=== PATIENT | female | born 1945 | race Caucasian/White ===

== ENCOUNTER 2017-04-11 08:15 | Day surgery (SDC) | payer MEDICARE, OTHER ==
[2017-04-11] MEDS ORDERED: Versed 2 MG/2 ML Injection IV ONE (08:16)
[2017-04-11] MEDS ORDERED: DIPRIVAN 200 MG/20 ML IV ONE (08:16)
[2017-04-11] MEDS ORDERED: Lactated Ringers 1,000 ML IV ONE (09:37)
[2017-04-11] MEDS ORDERED: BETADINE 5% OPHTHALMIC 30 ML OP ONE (10:00)
[2017-04-11] MEDS ORDERED: LIDOCAINE HCL 1% AMPUL 5 ML IJ ONE (10:00)
[2017-04-11] MEDS ORDERED: BSS 500 ML, Fortaz/Tazicef 1 GM** 0.2 G IO ONE ×2 (10:00)
[2017-04-11] MEDS ORDERED: Lactated Ringers 1,000 ML IV SCH (10:00)
[2017-04-11] MEDS ORDERED: Ak-Dilate OPHTHALMIC*** 0.71 ML, Cyclogyl 1% OPHTH SOL 5 ML 0.71 ML, GATIFLOXACIN 0.5% ... OP ONE ×4 (10:00)
[2017-04-11] MEDS ORDERED: Epinephrine Preservative Free 1 MG/ML INTRAOP ONE (10:00)
[2017-04-11] MEDS ORDERED: TETRACAINE 0.5% STERI-UNIT SOL OP ONE ×2 (10:00)
[2017-04-11] MEDS ORDERED: Zofran 4 MG/2 ML VIAL IV PRN (11:30)
[2017-04-11] MEDS ORDERED: ACETAZOLAMIDE 250 MG TABLET PO ONE (11:30)
[2017-04-11 11:39] VITALS: O2SAT 94
[2017-04-11 11:54] VITALS: BP 104/65; PULSE 65
--- NOTE | 2017-04-11 12:24 | OP ---
DATE/TIME OF OPERATION: 04/11/2017 1034 TIME DICTATED: 1151 PREOPERATIVE DIAGNOSIS: Senile cataract of left eye. POSTOPERATIVE DIAGNOSIS: Senile cataract of left eye. SURGEON: Last Rodriguez MD ENGINEERING DIRECTOR: None. OPERATION: Cataract extraction of left eye with an intraocular lens implant. STANDARD COMPLEX __X____ ANESTHESIA: MAC. ___X___ Monitored anesthesia care in combination with topical and intra-cameral anesthesia (because of the established specific risk of reflux, arrhythmias, or an anxiety attack associated with ocular manipulation as well as difficulty of the cash specialist to manage such potentially catastrophic events while simultaneously attempting to complete the surgical procedure, it was deemed necessary for the patient's safety to have an anesthesiologist or a nurse hand grinder present during the procedure whenever possible. The anesthesiologist or the nurse hand grinder was utilized to monitor and regulate the intravenous sedation of the patient, so the patient was cooperative, relaxed, and comfortable). Topical anesthesia using Tetracaine eye drops together with intra cameral anesthesia using Lidocaine 1% MPF. The nurse was utilized to monitor the patient. ANESTHESIA PROVIDER: Kendell Bates CRNA. COMPLICATIONS: None. BLOOD LOSS: None. INDICATIONS: The patient is undergoing cataract surgery in the hopes of eliminating the visual complaints and difficulty. PROCEDURE: After arriving at the facility's outpatient surgery area, an IV was started; the patient was given 5 mg of p.o. Versed. (If an anesthesia provider was not monitoring the patient) The patient was then given topical anesthetic Tetracaine eye drops. A cotton pellet was soaked into a solution of a combination of Zymaxid 0.5%, Chivo-Synephrine 2.5% and Ocufen (other drops might have been substituted referenced in the patient's record). The pellet was inserted by the RN into the lower conjunctival cul-de-sac with a sterile forceps and left for 20 minutes. The pellet was then removed by the RN with a sterile forceps before taking the patient to the operating room. The preoperative area nurse identified the patient and marked the correct eye to be operated on. I identified the correct eye to be operated on and marked it appropriately in the outpatient surgery area. The patient was then taken into the operating room. Tetracaine eye drops were installed again in the correct eye. The eyelids and the lashes and the lid margins were scrubbed with Betadine solution. One drop of the diluted Betadine solution was placed in the conjunctival cul-de-sac for 45 seconds and then was irrigated. A drop of Tetracaine Gel was placed in the conjunctival cul-de-sac. The patient's forehead was taped to secure it during the procedure. The patient was monitored. The patient was then draped in the usual way for this procedure. An eye speculum was used to separate the eyelids. The eye was then fixated and a temporal 2.5 mm incision was made in the clear cornea temporally at the limbus. Through the incision, 0.25 cc of 1% non-preserved lidocaine was injected into the anterior chamber for intracameral anesthesia. The anterior chamber was then filled with viscoelastic. The pupil was small. I felt that it would be safer to mechanically dilate the pupil. A Malyugin ring was used at this point which dilated the pupil. That was removed at the end of the procedure prior to aspiration of the viscoelastic from the anterior chamber and posterior to the intraocular lens implant. The cataract had a great amount of cortical changes. That rendered seeing the anterior capsule difficult for a safe performance of an anterior capsulotomy. I injected an air bubble into the anterior chamber. I then injected 1 ML of vision blue solution into the anterior chamber. The vision blue solution was irrigated from the anterior chamber after 30 seconds. The anterior capsule was stained which facilitated performing the anterior capsulotomy safely. After that was completed, a cystotome was introduced into the anterior chamber and a round anterior capsulotomy was performed. The capsule was removed by a forceps. Hydrodissection was next carried utilizing a 25-gauge cannula and balanced salt solution to delineate the cortical material from the capsule and the nucleus from the cortical material. The nucleus was rotated freely into the capsular bag with no difficulty. The phaco tip of the O[employer] Phacoemulsifier was introduced into the anterior chamber and two grooves were made into the nucleus 90 degrees apart. Using two spatulas resulted into the nucleus being fractured into four quadrants. The phaco tip was then used to remove each quadrant of the nucleus. Viscoelastic was used during this process to protect the corneal endothelium. Once the entire nucleus was removed, the phaco tip then was removed and the irrigation tip was introduced into the eye and the cortex was removed. The posterior capsule was polished. It was noticed that there was a tear into the posterior capsule with few vitreous strands into the pupil plan. An anterior vitrectomy was performed. A 16.50 diopter, SN60WF, posterior chamber lens implant, was inspected and found to be grossly normal. The implant was inserted into the implant injector cartridge; Viscoelastic again was introduced into the anterior chamber, which filled the capsular bag. The implant injector's cartridge tip was placed at the limbal wound and the posterior chamber implant was released into the capsular bag and rotated appropriately. The implant was found to be into the capsular bag and it was centered. 0.2 ml of Tri-Moxi was introduced via 27 gauge cannula into the vitreous cavity through the ciliary processes. Viscoelastic was aspirated from the anterior chamber and posterior to the intraocular lens implant from the capsular bag using the irrigating tip. The anterior chamber was irrigated and filled with 5 cc antibiotic solution (500 cc of BSS plus 2 ml of Fortaz 100 mg/ml) ( if patient was not allergic to the medication). The lips of the corneal incision were hydrated using BSS solution. The anterior chamber was checked and found to be water tight. ___X___ One drop each of antibiotic, steroid and NSAID drops (refer to chart for drops used) were placed in the conjunctival cul-de-sac of the operated eye. Patient tolerated the procedure quite well and left the operating room in satisfactory condition. NOTE: Right removing viscoelastic at the end of the procedure it was noticed that there were some broken ciliary prosthesis which led to a slight wrinkling of the posterior capsule inferiorly so I inserted the capsular tension ring to stabilize the capsule. The capsule stabilized and the procedure was finished. DISCHARGE SUMMARY: The patient was released in stable condition. The patient and those with the patient were given an instruction sheet as of how to care for the eye after surgery as well as counseling on any abnormal laboratory studies by the postoperative RN. The patient was also given an appointment card for follow-up in the office and is to call immediately for any difficulties including but not limited to pain in the eye, decreased vision, discharge from the eye, headache and or fever. DISCHARGE DIAGNOSIS: Pseudophakia of left eye.
== END 2017-04-11 12:05 | disposition home or self-care (01) ==
LOC: SDC 08:15
PROVIDERS: ATTEND Ophthalmology
PROC: 08RK3JZ Replacement of Left Lens with Synthetic Substitute, Percutaneous Approach (ICD-10-PCS; principal; 2017-04-11)
PROC: 08B53ZZ Excision of Left Vitreous, Percutaneous Approach (ICD-10-PCS; 2017-04-11)
DX: H25.9 Unspecified age-related cataract (principal)
CPT/HCPCS: 66982 ×2; 67005; C1780; 00142; 99100; J0171; J2250; J2704; A9270-GY

== ENCOUNTER 2017-05-16 07:58 | Day surgery (SDC) | payer MEDICARE, OTHER ==
[~2017-05-16 07:58] MED LIST: Lactated Ringers 1,000 ML IV ONE
[2017-05-16] MEDS ORDERED: DIPRIVAN 200 MG/20 ML IV ONE (07:59)
[2017-05-16] MEDS: TETRACAINE 0.5% STERI-UNIT SOL OP ONE ×2 (08:59→09:28)
[2017-05-16] MEDS: ACETAZOLAMIDE 250 MG TABLET PO ONE ×2 (09:19→11:31)
[2017-05-16] MEDS ORDERED: BSS 500 ML, Fortaz/Tazicef 1 GM** 0.2 G IO ONE ×2 (10:00)
[2017-05-16] MEDS ORDERED: Zofran 4 MG/2 ML VIAL IV PRN (10:00)
[2017-05-16] MEDS ORDERED: LIDOCAINE HCL 1% AMPUL 5 ML IJ ONE (10:00)
[2017-05-16] MEDS ORDERED: Ak-Dilate OPHTHALMIC*** 0.71 ML, Cyclogyl 1% OPHTH SOL 5 ML 0.71 ML, GATIFLOXACIN 0.5% ... OP ONE ×4 (10:00)
[2017-05-16] MEDS ORDERED: Lactated Ringers 1,000 ML IV SCH (10:00)
[2017-05-16] MEDS ORDERED: TETRACAINE 0.5% STERI-UNIT SOL OP ONE (10:00)
[2017-05-16] MEDS ORDERED: Epinephrine Preservative Free 1 MG/ML INTRAOP ONE (10:00)
[2017-05-16] MEDS ORDERED: BETADINE 5% OPHTHALMIC 30 ML OP ONE (10:00)
[2017-05-16 12:31] VITALS: BP 156/68; PULSE 57; O2SAT 100
--- NOTE | 2017-05-16 13:41 | OP ---
DATE/TIME OF OPERATION: 05/16/2017 1034 TIME DICTATED: 1202 PREOPERATIVE DIAGNOSIS: Senile cataract of right eye. POSTOPERATIVE DIAGNOSIS: Senile cataract of right eye. SURGEON: Last Rodriguez MD FARM EQUIPMENT ENGINE MECHANIC: None. OPERATION: Cataract extraction of right eye with an intraocular lens implant. STANDARD __X___ COMPLEX ANESTHESIA: MAC. ___X___ Monitored anesthesia care in combination with topical and intra-cameral anesthesia (because of the established specific risk of reflux, arrhythmias, or an anxiety attack associated with ocular manipulation as well as difficulty of the wool classer to manage such potentially catastrophic events while simultaneously attempting to complete the surgical procedure, it was deemed necessary for the patient's safety to have an anesthesiologist or a nurse road passenger firer present during the procedure whenever possible. The anesthesiologist or the nurse road passenger firer was utilized to monitor and regulate the intravenous sedation of the patient, so the patient was cooperative, relaxed, and comfortable). Topical anesthesia using Tetracaine eye drops together with intra cameral anesthesia using Lidocaine 1% MPF. The nurse was utilized to monitor the patient. ANESTHESIA PROVIDER: Johnson Barillas CRNA. COMPLICATIONS: None. BLOOD LOSS: None. INDICATIONS: The patient is undergoing cataract surgery in the hopes of eliminating the visual complaints and difficulty. PROCEDURE: After arriving at the facility's outpatient surgery area, an IV was started; the patient was given 5 mg of p.o. Versed. (If an anesthesia provider was not monitoring the patient) The patient was then given topical anesthetic Tetracaine eye drops. A cotton pellet was soaked into a solution of a combination of Zymaxid 0.5%, Chivo-Synephrine 2.5% and Ocufen (other drops might have been substituted referenced in the patient's record). The pellet was inserted by the RN into the lower conjunctival cul-de-sac with a sterile forceps and left for 20 minutes. The pellet was then removed by the RN with a sterile forceps before taking the patient to the operating room. The preoperative area nurse identified the patient and marked the correct eye to be operated on. I identified the correct eye to be operated on and marked it appropriately in the outpatient surgery area. The patient was then taken into the operating room. Tetracaine eye drops were installed again in the correct eye. The eyelids and the lashes and the lid margins were scrubbed with Betadine solution. One drop of the diluted Betadine solution was placed in the conjunctival cul-de-sac for 45 seconds and then was irrigated. A drop of Tetracaine Gel was placed in the conjunctival cul-de-sac. The patient's forehead was taped to secure it during the procedure. The patient was monitored. The patient was then draped in the usual way for this procedure. An eye speculum was used to separate the eyelids. The eye was then fixated and a temporal 2.5 mm incision was made in the clear cornea temporally at the limbus. Through the incision, 0.25 cc of 1% non-preserved lidocaine was injected into the anterior chamber for intracameral anesthesia. The anterior chamber was then filled with viscoelastic. The pupil was small. I felt that it would be safer to mechanically dilate the pupil. A Malyugin ring was used at this point which dilated the pupil. That was removed at the end of the procedure prior to aspiration of the viscoelastic from the anterior chamber and posterior to the intraocular lens implant. The cataract had a great amount of cortical changes. That rendered seeing the anterior capsule difficult for a safe performance of an anterior capsulotomy. I injected an air bubble into the anterior chamber. I then injected 1 ML of vision blue solution into the anterior chamber. The vision blue solution was irrigated from the anterior chamber after 30 seconds. The anterior capsule was stained which facilitated performing the anterior capsulotomy safely. After that was completed, a cystotome was introduced into the anterior chamber and a round anterior capsulotomy was performed. The capsule was removed by a forceps. Hydrodissection was next carried utilizing a 25-gauge cannula and balanced salt solution to delineate the cortical material from the capsule and the nucleus from the cortical material. The nucleus was rotated freely into the capsular bag with no difficulty. The phaco tip of the Obi [employer] Phacoemulsifier was introduced into the anterior chamber and two grooves were made into the nucleus 90 degrees apart. Using two spatulas resulted into the nucleus being fractured into four quadrants. The phaco tip was then used to remove each quadrant of the nucleus. Viscoelastic was used during this process to protect the corneal endothelium. Once the entire nucleus was removed, the phaco tip then was removed and the irrigation tip was introduced into the eye and the cortex was removed. The posterior capsule was polished. It was noticed that there was a tear into the posterior capsule with few vitreous strands into the pupil plan. An anterior vitrectomy was performed. A 17.50 diopter, SN60WF, posterior chamber lens implant, was inspected and found to be grossly normal. The implant was inserted into the implant injector cartridge; Viscoelastic again was introduced into the anterior chamber, which filled the capsular bag. The implant injector's cartridge tip was placed at the limbal wound and the posterior chamber implant was released into the capsular bag and rotated appropriately. The implant was found to be into the capsular bag and it was centered. 0.2 ml of Tri-Moxi was introduced via 27 gauge cannula into the vitreous cavity through the ciliary processes. Viscoelastic was aspirated from the anterior chamber and posterior to the intraocular lens implant from the capsular bag using the irrigating tip. The anterior chamber was irrigated and filled with 5 cc antibiotic solution (500 cc of BSS plus 2 ml of Fortaz 100 mg/ml) ( if patient was not allergic to the medication). The lips of the corneal incision were hydrated using BSS solution. The anterior chamber was checked and found to be water tight. ___X___ One drop each of antibiotic, steroid and NSAID drops (refer to chart for drops used) were placed in the conjunctival cul-de-sac of the operated eye. Patient tolerated the procedure quite well and left the operating room in satisfactory condition. DISCHARGE SUMMARY: The patient was released in stable condition. The patient and those with the patient were given an instruction sheet as of how to care for the eye after surgery as well as counseling on any abnormal laboratory studies by the postoperative RN. The patient was also given an appointment card for follow-up in the office and is to call immediately for any difficulties including but not limited to pain in the eye, decreased vision, discharge from the eye, headache and or fever. DISCHARGE DIAGNOSIS: Pseudophakia of right eye.
== END 2017-05-16 12:25 | disposition home or self-care (01) ==
LOC: SDC 07:58
PROVIDERS: ATTEND Ophthalmology
PROC: 08RJ3JZ Replacement of Right Lens with Synthetic Substitute, Percutaneous Approach (ICD-10-PCS; principal; 2017-05-16)
PROC: 08B43ZZ Excision of Right Vitreous, Percutaneous Approach (ICD-10-PCS; 2017-05-16)
DX: H25.9 Unspecified age-related cataract (principal); J44.9 Chronic obstructive pulmonary disease, unspecified; J45.909 Unspecified asthma, uncomplicated; K21.9 Gastro-esophageal reflux disease without esophagitis; Z79.899 Other long term (current) drug therapy
CPT/HCPCS: 66984; 67005; C1780; 00142; 99100; J0171; J2704; A9270-GY

== ENCOUNTER 2018-08-21 05:56 | Day surgery (SDC) | payer MEDICARE, OTHER ==
[2018-08-21] MEDS ORDERED: DIPRIVAN 200 MG/20 ML IV ONE (05:57)
[2018-08-21] MEDS ORDERED: Ketamine HCl 50 MG/ML IJ ONE (05:57)
[2018-08-21] MEDS ORDERED: Lactated Ringers 1,000 ML IV SCH (06:00)
[2018-08-21 08:40] VITALS: O2SAT 98
--- NOTE | 2018-08-21 08:44 | OP ---
SURGERY DATE/TIME: 08/21/2018 0700 PREOPERATIVE DIAGNOSES: 1) History of gastroesophageal reflux disease. 2) History of colon polyps. POSTOPERATIVE DIAGNOSES: 1) Mild gastritis. 2) Scattered diverticulosis. PROCEDURES: 1) Esophagogastroduodenoscopy with biopsy. 2) Colonoscopy. SURGEON: Dr. Velez. ANESTHESIA: Medications were given by the anesthesia department. BRIEF HISTORY: The patient is a 73 year old white female who reports she has a long history of gastroesophageal reflux which is episodic at times getting worse and the getting better. She also reports a history of colon polyps. Her last evaluation was more than five years ago. The patient was felt the need to have endoscopic evaluation. She was appraised of the risks of the procedure including the risk of perforation, phlebitis, untoward reaction to medication, bleeding and missed lesions. The patient verbalized her understanding and desired to have the procedure performed. DESCRIPTION OF PROCEDURE: The patient was given the medications by the anesthesia department. She had continuous pulse oximetry, ECG monitoring, intermittent blood pressure monitoring and tidal CO2 monitoring during the examination. She was placed in the left lateral decubitus position. A bite block was placed and the flexible Olympus gastroscope was used to intubate the oropharynx. A view of the larynx was obtained and was normal. The scope was easily introduced in the esophagus which appeared to be normal throughout its length. The stomach was entered where normal gastric rugal folds were seen and these distended nicely with insufflation of air. The scope was passed along the greater curvature of the stomach to the antrum. The pylorus encountered and intubated. Duodenum inspected and found to be normal. The scope is withdrawn towards the stomach. Again, a retroflex view was obtained of the lesser curvature, fundus and cardia regions of the stomach and these appeared normal. There was a generalized appearance of erythema throughout the stomach but no erosions or ulcerations. Biopsies were obtained with cold biopsy technique in the antrum to rule out the presence of Helicobacter pylori-type organisms. The scope was then removed from the patient. Next, a digital rectal exam was performed and revealed normal anal sphincter tone and no masses. The flexible Olympus pediatric colonoscope was used to intubate the rectum. A view of the colon was developed sequentially to the cecum. Upon insertion and withdrawal, including a retroflex view in the rectum and noted a few scattered diverticula throughout the colon. No mucosal lesions otherwise were encountered. The scope was removed from the patient who tolerated the procedure well and was sent back to OP recovery in good condition. The prep was noted to be fair to good.
[2018-08-21 08:50] VITALS: BP 153/74; PULSE 61
== END 2018-08-21 08:54 | disposition home or self-care (01) ==
LOC: SDC 05:56
PROVIDERS: ATTEND Family Medicine
DX: K29.70 Gastritis, unspecified, without bleeding (principal); K57.30 Diverticulosis of large intestine without perforation or abscess without bleeding; Z87.19 Personal history of other diseases of the digestive system
CPT/HCPCS: 99100; J2704

== ENCOUNTER 2019-03-21 09:51 | Day surgery (SDC) | payer MEDICARE, OTHER ==
[~2019-03-21 09:51] MED LIST changes: +DIPRIVAN 200 MG/20 ML IV ONE; +Quelicin Fliptop 200 MG/10 ML ONE; +SUBLIMAZE 100 MCG/2 ML ONE; +Zemuron 100 MG/10 ML ONE
[2019-03-21] MEDS ORDERED: Lactated Ringers 1,000 ML IV ONE (11:25)
[2019-03-21] MEDS ORDERED: Lactated Ringers 1,000 ML IV SCH (11:30)
[2019-03-21] MEDS ORDERED: XYLOCAINE 1%/Epi 1:100000 MDV 20 ML ONE (12:30)
[2019-03-21] MEDS ORDERED: KEFZOL 1 GM ONE (12:31)
[2019-03-21] MEDS ORDERED: BRIDION 200MG/2ML IV ONE (12:56)
[2019-03-21] MEDS ORDERED: Decadron 4 MG INJ ONE (12:56)
[2019-03-21] MEDS ORDERED: Zofran 4 MG/2 ML VIAL ONE (12:56)
[2019-03-21] MEDS ORDERED: TORAdol 30 mg Injection ONE (12:56)
[2019-03-21] MEDS ORDERED: APRESOLINE 20 MG/ML INJ ONE (13:15)
[2019-03-21 14:36] VITALS: PULSE 78; O2SAT 98
[2019-03-21 14:38] VITALS: BP 127/61
--- NOTE | 2019-03-22 11:22 | OP ---
SURGERY DATE/TIME: 03/21/2019 1227 PREOPERATIVE DIAGNOSIS: A 1 cm nasal cancer. POSTOPERATIVE DIAGNOSIS: A 1 cm nasal cancer. PROCEDURES: 1) Excision of 1 cm nasal cancer elliptically. 2) Split thickness skin graft harvest and application 1 sq/cm. SURGEON: Neville Flores M.D. ANESTHESIA: MAC. COMPLICATIONS: None. CONDITION: Stable. INDICATION: A patient requiring above stated procedure. DESCRIPTION OF PROCEDURE: Taken to surgery. Routine prep and drape. Elliptical excision with 1 mm margins. It was elevated. It was lifted off with electrocautery needle tip. Hemostasis satisfactory. Split thickness skin graft 14,000ths of an inch was harvested from the neck and then applied with suture #4-0 chromic. Sterile ointment applied. Sterile dressing applied. The patient tolerated the procedure satisfactorily.
== END 2019-03-21 14:35 | disposition home or self-care (01) ==
LOC: SDC 09:51
PROVIDERS: ATTEND Surgery
DX: C44.301 Unspecified malignant neoplasm of skin of nose (principal)
CPT/HCPCS: 99100; J0330; J0360; J0690; J1100; J1885; J2405; J2704; J3010

== ENCOUNTER 2021-03-17 13:56 | Day surgery (SDC) | payer MEDICARE, OTHER ==
[2021-03-17] MEDS ORDERED: LIDOCAINE HCL 2% 100 MG/5 ML IJ ONE (13:57)
[2021-03-17] MEDS ORDERED: Depo-Medrol 40 MG/ML IM ONE (13:57)
[2021-03-17] MEDS ORDERED: DIPRIVAN 200 MG/20 ML IV ONE (15:38)
[2021-03-17] MEDS ORDERED: Lactated Ringers 1,000 ML IV ONE (16:17)
--- NOTE | 2021-03-18 11:30 | XRAY ---
16 seconds fluoroscopy time in surgery for bilateral L4-S1 MBB.
--- NOTE | 2021-03-20 23:07 | XRAY ---
Indication: Bilateral L4-S1 MBB. Intraoperative fluoroscopy was provided for 16 seconds. A single digital spot image submitted for interpretation demonstrates posterior needle tips projected over the expected left and right L4-S1 nerve roots. Correlate with intraoperative findings/report.
== END 2021-03-17 16:05 | disposition home or self-care (01) ==
LOC: SDC-PAIN 13:56
PROVIDERS: ATTEND Psychiatry & Neurology Pain Medicine
DX: M47.816 Spondylosis without myelopathy or radiculopathy, lumbar region (principal); Z79.899 Other long term (current) drug therapy
CPT/HCPCS: 64493; 64494; 72020; 77002; J1030; J2704

== ENCOUNTER 2021-04-14 12:55 | Day surgery (SDC) | payer MEDICARE, OTHER ==
[2021-04-14] MEDS ORDERED: BUPIVACAINE 0.5% VIAL IJ ONE (12:56)
[2021-04-14] MEDS ORDERED: Depo-Medrol 40 MG/ML IM ONE (12:56)
[2021-04-14] MEDS ORDERED: DIPRIVAN 200 MG/20 ML IV ONE (15:07)
[2021-04-14] MEDS ORDERED: Lactated Ringers 1,000 ML IV ONE (16:31)
--- NOTE | 2021-04-14 16:57 | XRAY ---
Indication: Bilateral L4-S1 MBB. Intraoperative fluoroscopy provided for 21 seconds. Single digital spot image submitted for interpretation demonstrates posterior needle tips projecting over the expected left and right L4-S1 nerve roots. Correlate with intraoperative findings/report.
--- NOTE | 2021-04-14 20:44 | XRAY ---
21 seconds of fluoroscopy was used in surgery for a bilateral L4-S1 MBB.
== END 2021-04-14 15:35 | disposition home or self-care (01) ==
LOC: SDC-PAIN 12:55
PROVIDERS: ATTEND Psychiatry & Neurology Pain Medicine
DX: M47.816 Spondylosis without myelopathy or radiculopathy, lumbar region (principal); Z79.899 Other long term (current) drug therapy
CPT/HCPCS: 64493; 64494; 72020; 77002; J1030; J2704

== ENCOUNTER 2021-06-16 13:50 | Day surgery (SDC) | payer MEDICARE, OTHER ==
[2021-06-16] MEDS ORDERED: Depo-Medrol 40 MG/ML IM ONE (13:51)
[2021-06-16] MEDS ORDERED: Xylocaine 1% Vial 30 ML PF IJ ONE (13:51)
[2021-06-16] MEDS ORDERED: BUPIVACAINE 0.5% VIAL IJ ONE (13:51)
[2021-06-16] MEDS ORDERED: Lactated Ringers 1,000 ML IV ONE (15:51)
[2021-06-16] MEDS ORDERED: DIPRIVAN 200 MG/20 ML IV ONE (16:19)
--- NOTE | 2021-06-16 18:46 | XRAY ---
Indication: Left L4-S1 RFA. Intraoperative fluoroscopy provided for 36 seconds. 3 digital spot image submitted for interpretation demonstrates posterior needle tips projecting over the expected left L4-S1 nerve roots. Correlate with intraoperative findings/report.
--- NOTE | 2021-06-17 09:27 | XRAY ---
36 seconds fluoroscopy time in surgery for left L4-S1 RFA.
== END 2021-06-16 16:50 | disposition home or self-care (01) ==
LOC: SDC-PAIN 13:50
PROVIDERS: ATTEND Psychiatry & Neurology Pain Medicine
DX: M47.816 Spondylosis without myelopathy or radiculopathy, lumbar region (principal); Z79.899 Other long term (current) drug therapy
CPT/HCPCS: 64635; 64636; 72100; 77002; 99100; J1030; J2001; J2704

== ENCOUNTER 2021-06-23 12:10 | Day surgery (SDC) | payer MEDICARE, OTHER ==
[2021-06-23] MEDS ORDERED: Xylocaine 1% Vial 30 ML PF IJ ONE (12:11)
[2021-06-23] MEDS ORDERED: BUPIVACAINE 0.5% VIAL IJ ONE (12:11)
[2021-06-23] MEDS ORDERED: Depo-Medrol 40 MG/ML IM ONE (12:11)
[2021-06-23] MEDS ORDERED: Lactated Ringers 1,000 ML IV ONE (14:56)
--- NOTE | 2021-06-23 14:58 | XRAY ---
Indication: Right L4-S1 RFA. Intraoperative fluoroscopy provided for 26 seconds. 3 digital spot image submitted for interpretation demonstrates posterior needle tips projecting over the expected right L4-S1 nerve roots. Correlate with intraoperative findings/report.
--- NOTE | 2021-06-23 17:05 | XRAY ---
26 seconds fluoroscopy time in surgery for right L4-S1 RFA.
== END 2021-06-23 14:51 | disposition home or self-care (01) ==
LOC: SDC-PAIN 12:10
PROVIDERS: ATTEND Psychiatry & Neurology Pain Medicine
DX: M47.816 Spondylosis without myelopathy or radiculopathy, lumbar region (principal); Z79.899 Other long term (current) drug therapy
CPT/HCPCS: 64635; 64636; 72100; 77002; J1030; J2001